=== PATIENT | male | born 1990 | race Hispanic/Latino ===

== ENCOUNTER 2016-07-24 17:13 | Emergency (ER) | payer MEDICARE, OTHER ==
[2016-07-24 18:05] VITALS: BP 142/86; PULSE 92; RESP 16; TEMP 98.5; O2SAT 98
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
== END 2016-07-24 19:41 | disposition home or self-care (01) ==
LOC: H.ER 17:13
DX: F84.0 Autistic disorder (principal)

== ENCOUNTER 2018-05-14 03:51 | Emergency (ER) | payer MEDICARE, OTHER ==
[2018-05-14 04:05] VITALS: BP 128/79; PULSE 95; RESP 18; TEMP 97.6; O2SAT 98
[2018-05-14] MEDS ORDERED: Sodium Chloride 0.9% 1,000 ML IV STA (04:17)
--- NOTE | 2018-05-14 04:58 | ED PDOC ---
HPI:Nausea, Vomiting, Diarrhea Time Seen by Provider: 05/14/18 04:03 Chief Complaint (Nursing): GI Problem Chief Complaint (Provider): GI Problem History Per: Patient, Family (mother) History/Exam Limitations: no limitations Onset/Duration Of Symptoms: Days (x 1) Current Symptoms Are (Timing): Still Present Associated Symptoms: Vomiting, Diarrhea Additional Complaint(s): 27 year old male with a history of autism, OCD and seizures presents to the ED via EMS for evaluation of vomiting and diarrhea since last night. Patient is accompanied by mother who provides history. Since last night, patient has experienced 4-5 episodes of non-bloody, non-bilious vomiting and recurrent retching. Mother also witnessed one bowel movement that was diarrhea. He is currently taking Reglan and Augmentin due to vomiting and a sore throat. Offers no other complaints. PMD: Dr. Sonia Yi Past Medical History Reviewed: Historical Data, Nursing Documentation, Vital Signs Vital Signs: Last Vital Signs Temp 97.6 F 05/14/18 03:56 Pulse 95 H 05/14/18 03:56 Resp 18 05/14/18 03:56 BP 128/79 05/14/18 03:56 Pulse Ox 98 05/14/18 03:56 - Medical History PMH: Seizures Denies: Diabetes, Hepatitis, HIV, HTN, Chronic Kidney Disease, Sexually Transmitted Disease Other PMH: Autism spectrum and OCD - Surgical History Surgical History: No Surg Hx - Family History Family History: States: No Known Family Hx - Social History Current smoker - smoking cessation education provided: No Alcohol: None Drugs: Denies - Home Medications Home Medications: Ambulatory Orders Medication Instructions Recorded Benztropine Mesylate [Cogentin] 1 mg PO BID 01/12/15 Carbamazepine [Tegretol-Xr] 400 mg PO BID [address] 01/12/15 Divalproex [Depakote ER] 500 mg PO BID [address] 01/12/15 Haloperidol [Haldol] 10 mg PO BID 01/12/15 diaZEpam [Valium] 5 mg PO QPM 01/12/15 Diazepam 0.5 tab PO QAM 04/15/15 Fluoxetine Hydrochloride [Prozac] 10 mg PO DAILY 04/15/15 Haloperidol [Haldol] 5 mg PO PRN PRN 04/15/15 Dicyclomine [Bentyl] 20 mg PO Q12 PRN #20 tab 05/14/18 Ondansetron ODT [Zofran ODT] 4 mg PO Q6 PRN #8 odt 05/14/18 - Allergies Allergies/Adverse Reactions: Allergies Allergy/AdvReac Type Severity Reaction Status Date / Time No Known Allergies Allergy Verified 01/11/15 21:40 Review of Systems ROS Statement: Except As Marked, All Systems Reviewed And Found Negative Constitutional: Negative for: Fever, Chills Respiratory: Negative for: Cough, Shortness of Breath Gastrointestinal: Positive for: Vomiting, Diarrhea, Other (recurrent retching). Negative for: Constipation Physical Exam - Reviewed Nursing Documentation Reviewed: Yes Vital Signs Reviewed: Yes - Physical Exam Appears: Positive for: Non-toxic, No Acute Distress Head Exam: Positive for: ATRAUMATIC, NORMAL INSPECTION, NORMOCEPHALIC Skin: Positive for: Normal Color, Warm, Dry Eye Exam: Positive for: EOMI, Normal appearance, PERRL Neck: Positive for: Normal, Painless ROM, Supple Cardiovascular/Chest: Positive for: Regular Rate, Rhythm. Negative for: Murmur Respiratory: Positive for: Normal Breath Sounds. Negative for: Respiratory D istress Gastrointestinal/Abdominal: Positive for: Normal Exam, Soft. Negative for: Tenderness, Guarding, Rebound Extremity: Positive for: Normal ROM (upper and lower extremities). Negative for: Deformity, Swelling Neurologic/Psych: Positive for: Alert, Oriented - Laboratory Results Result Diagrams: 05/14/18 04:52 05/14/18 04:52 - ECG O2 Sat by Pulse Oximetry: 98 (RA) Pulse Ox Interpretation: Normal Medical Decision Making Medical Decision Makin:17 Impression: 27 year old male with vomiting and diarrheal illness Initial Plan: --Alcohol serum --UDS --Lipase --CMP --CBC --Urine dip --NS IV --Zofran 4 mg IV --Infectious Mononucleosis 06:36 --Labs reviewed and are significant for leukopenia with monocytosis. Monospot test added to work up given recent history of sore throat. Of note, patient also has hyponatremia with sodium of 125. It is likely hydration related. Mother was made aware of these findings and will follow up with PMD. Diagnoses are viral syndrome and gastroenteritis. Scribe Attestation: Documented by Jayde Carroll acting as a scribe for Saurabh Mcgrath MD Provider Scribe Attestation: All medical record entries made by the Scribe were at my direction and personally dictated by me. I have reviewed the chart and agree that the record accurately reflects my personal performance of the history, physical exam, medical decision making, and the department course for this patient. I have also personally directed, reviewed, and agree with the discharge instructions and disposition. Disposition - Clinical Impression Clinical Impression: Gastroenteritis - Patient ED Disposition Is Patient to be Admitted: No - Disposition Disposition: Routine/Home Disposition Time: 06:36 Condition: STABLE Prescriptions: Dicyclomine [Bentyl] 20 mg PO Q12 PRN #20 tab PRN Reason: abdominal pain/diarrhea Ondansetron ODT [Zofran ODT] 4 mg PO Q6 PRN #8 odt PRN Reason: Nausea/Vomiting Instructions: Diarrhea in Adolescents and Adults Forms: [employer] ([place])
[2018-05-14 04:59] LABS: BASO % 0.1 % (0.0-2.0); EOS % 0.1 % (0.0-4.0); HEMOGLOBIN 13.1 g/dL (12.0-18.0); LYMPH # 0.6 K/uL (1.0-4.3); LYMPH % 29.7 % (20.0-40.0); MEAN CELL VOLUME 88.8 fl (80.0-94.0); MEAN CORPUSCULAR HEMOGLOBIN 31.5 pg (27.0-31.0); MEAN CORPUSCULAR HGB CONC 35.5 g/dL (33.0-37.0); MEAN PLATELET VOLUME 8.8 fl (7.2-11.7); MONO # 0.7 K/uL (0.0-0.8); MONO % 33.5 % (0.0-10.0); NEUT # 0.8 K/uL (1.8-7.0); NEUT % 36.6 % (50.0-75.0); NRBC % 0.1 % (0.0-0.0); PLATELET COUNT 101 K/uL (130-400); RBC 4.17 Mil/uL (4.40-5.90); RED CELL DISTRIBUTION WIDTH 12.4 % (11.5-14.5); WHITE BLOOD COUNT 2.2 K/uL (4.8-10.8)
[2018-05-14 05:11] LABS: ALB/GLOB RATIO 1.2 (1.0-2.1); ALBUMIN 3.9 g/dL (3.5-5.0); ALT/SGPT 67 U/L (21-72); AST/SGOT 76 U/L (17-59); BLOOD UREA NITROGEN 6 mg/dl (9-20); CALCIUM 8.8 mg/dL (8.4-10.2); GFR NON-AFRICAN AMERICAN > 60
[2018-05-14 05:45] LABS: LIPASE 32 U/L (23-300)
[2018-05-14 06:16] LABS: LYMPHOCYTE 32 % (20-50); MONOCYTE 32 % (0-10); NEUTROPHIL 35 % (42-75); REACTIVE LYMPHOCYTES 1 % (0-0); TOTAL CELLS COUNTED 100
[2018-05-14 06:17] LABS: PLATELET ESTIMATE SLIGHTLY DECREASED (NORMAL)
== END 2018-05-14 06:55 | disposition home or self-care (01) ==
LOC: H.ER 03:51
DX: K52.9 Noninfective gastroenteritis and colitis, unspecified (principal); D72.819 Decreased white blood cell count, unspecified; D72.821 Monocytosis (symptomatic); B34.9 Viral infection, unspecified; E87.1 Hypo-osmolality and hyponatremia; F84.0 Autistic disorder
CPT/HCPCS: 80053; 83690; 85025; 86308; 96374; 99283; J2405; J7030